=== PATIENT | female | born 1975 | race African-American/Black ===

== ENCOUNTER 2017-06-01 23:15 | Emergency (ER) | payer MEDICAID ==
[~2017-06-01] VITALS: Ht 167.6 cm; Wt 68.0 kg
[~2017-06-01 23:15] MED LIST: ASPI81CH43 PO; Atorvastatin Calcium PO; BEN10T PO; CLOP75TA28 PO; DILT120C33 PO; DOCU-94 PO; METF-489 PO; METO25TA5 PO; ZOLP-158 PO
[2017-06-01 23:39] VITALS: BP 215/136
== END 2017-06-02 03:50 | disposition left against medical advice (07) ==
LOC: ER 23:19
DX: R07.89 Other chest pain (principal); Z53.21 Procedure and treatment not carried out due to patient leaving prior to being seen by health care provider
CPT/HCPCS: 71010